=== PATIENT | female | born 1960 ===

== ENCOUNTER 2017-10-24 15:14 | Observation (INO) | payer SELFPAY ==
--- NOTE | 2017-10-24 16:00 | RAD ---
HISTORY: Chest pain COMPARISONS: None VIEWS: 1: frontal portable view of the chest at 3:45 PM FINDINGS: LINES AND TUBES: None. CARDIOMEDIASTINAL SILHOUETTE: The cardiomediastinal silhouette is normal for portable technique. PLEURA: The costophrenic angles are sharp. No pleural abnormalities are noted. LUNG PARENCHYMA: The lungs are clear. ABDOMEN: The upper abdomen is clear. There is no subphrenic gas. BONES AND SOFT TISSUES: No bone or soft tissue abnormalities are noted. IMPRESSION: NO ACTIVE CARDIOPULMONARY DISEASE.
[2017-10-24 16:21] LABS: ABS Basophils 0 10^3/ul (0-0.2); ABS Eosinophils 0.1 10^3/ul (0-0.6); ABS Lymphocytes 1.2 10^3/ul (1.0-4.8); ABS Monocytes 0.4 10^3/ul (0-0.8); ABS Neutrophils 3.9 10^3/ul (1.5-7.7); ABS Nucleated RBC 0 10^3/ul; Eosinophil % 2.5 % (0-6); Hematocrit 38 % (35-47); Lymphocyte % 20.6 % (25-47); Mean Corpuscular HGB Conc 35 g/dl (31-36); Mean Corpuscular Hemoglobin 29 pg (27-31); Mean Corpuscular Volume 84 fL (80-97); Mean Platelet Volume 8.8 um3 (7.4-10.4); Nucleated Red Blood Cells % 0; Platelet Count 207 10^3/ul (150-450); Red Blood Count 4.48 10^6/ul (4.0-5.4); Red Cell Distribution Width 13 % (10.5-15); White Blood Count 5.6 10^3/ul (3.5-10.8)
[2017-10-24 16:33] LABS: INR 0.91 (0.77-1.02)
[2017-10-24 16:34] LABS: EGFR Non-African American 89.8 (>60)
[2017-10-24] MEDS ORDERED: Dextrose 50% Syringe 50 ML* 25 GM/50 ML SYRINGE IV PUSH PRN (21:08)
[2017-10-24] MEDS ORDERED: Acetaminophen TAB* 325 MG PO PRN (21:08)
[2017-10-24] MEDS ORDERED: Aspirin 81 mg CHEW TAB* 81 MG TAB.CHEW PO ONE (21:08)
[2017-10-24] MEDS ORDERED: Ondansetron INJ* 2 MG/ML VIAL IV PRN (21:08)
[2017-10-24] MEDS ORDERED: Meclizine TAB* 12.5 MG PO PRN (21:24)
[2017-10-24] MEDS ORDERED: Meclizine TAB* 12.5 MG PO ONE (21:24)
--- NOTE | 2017-10-24 22:00 | RAD ---
HISTORY: Dizziness COMPARISONS: None TECHNIQUE: Multiple contiguous axial CT scans were obtained of the head without intravenous contrast. FINDINGS: HEMORRHAGE/INFARCT: There is no hemorrhage or acute infarct. MASSES/SHIFT: There is no mass or shift. EXTRA-AXIAL SPACES: There are no extra-axial fluid collections. SULCI AND VENTRICLES: The sulci and ventricles are normal in size and position for the patient's stated age. CEREBRUM: There are no focal parenchymal abnormalities. BRAINSTEM: There are no focal parenchymal abnormalities. CEREBELLUM: There are no focal parenchymal abnormalities. VESSELS: The vessels are grossly normal. PARANASAL SINUSES: The paranasal sinuses are clear. ORBITS: The orbits are unremarkable. BONES AND SOFT TISSUE: No bone or soft tissue abnormalities are noted. OTHER: None IMPRESSION: NO ACUTE INTRACRANIAL PATHOLOGY.
[2017-10-24] MEDS: Heparin VIAL(*) 5000 UNITS/ML VIAL (FIVE THOUSAND) SUBCUT SCH (23:33)
[2017-10-25 00:59] LABS: ABS Basophils 0 10^3/ul (0-0.2); ABS Eosinophils 0.2 10^3/ul (0-0.6); ABS Lymphocytes 1.7 10^3/ul (1.0-4.8); ABS Monocytes 0.4 10^3/ul (0-0.8); ABS Neutrophils 3.6 10^3/ul (1.5-7.7); ABS Nucleated RBC 0 10^3/ul; Eosinophil % 3.3 % (0-6); Hematocrit 38 % (35-47); Hemoglobin 12.9 g/dl (12.0-16.0); Lymphocyte % 28.7 % (25-47); Mean Corpuscular HGB Conc 34 g/dl (31-36); Mean Corpuscular Hemoglobin 29 pg (27-31); Mean Corpuscular Volume 85 fL (80-97); Mean Platelet Volume 8.7 um3 (7.4-10.4); Nucleated Red Blood Cells % 0.1; Platelet Count 204 10^3/ul (150-450); Red Blood Count 4.51 10^6/ul (4.0-5.4); Red Cell Distribution Width 13 % (10.5-15)
--- NOTE | 2017-10-25 02:48 | HP ---
HISTORY AND PHYSICAL: DATE OF ADMISSION: ATTENDING PHYSICIAN WHILE IN THE HOSPITAL: Betito Woods MD * (report dictated by Blue Harrison NP) PRIMARY CARE PROVIDER: None. CHIEF COMPLAINT: 1. Chest pain. 2. Dizziness. HISTORY OF PRESENT ILLNESS: Ms. Flowers is a 57-year-old female patient who speaks Uzbek only. The patient recently relocated from [facility] about 2 weeks ago. She has noticed that in the last 24 to 48 hours she had some episodes of dizziness that she describes as becoming worse when she sits up, feeling nauseated, no visual changes. There was no reports of weakness to 1 side, no facial drooping, and again no blurry vision and she also complained of having chest discomfort and the patient said that she has been having some intermittent chest burning, pressure going up the hills over the last several days intermittently. There is no chest pressure now, and when she gets these episodes, there is no reports of associated nausea, shortness of breath, or diaphoresis. The patient states that she was concerned today because she just fell off, she felt that dizziness. She had been having that chest pressure. She spoke to her friend. Because she has no primary care provider here, they came into the ER. The patient denies having any nausea or vomiting. No recent fevers, chills, or coughing. She denies any leg swelling, leg pain, or any fevers or chills, but there was concern because of these symptoms she had been exhibiting and we were asked to evaluate for admission. PAST MEDICAL HISTORY: According to the patient includes: 1. Hypertension. 2. Hyperlipidemia. 3. Kidney stones. 4. Diabetes. PAST SURGICAL HISTORY: 1. She has had spine surgery. 2. Appendectomy. HOME MEDICATIONS: She brought meds from [facility] and she says the only medication she is taking is insulin and she is not aware of the dose. ALLERGIES TO MEDICATIONS: Include no known drug allergies. FAMILY HISTORY: She said her father had an [place], she is unsure what age. Mother' s history was reviewed and noncontributory. SOCIAL HISTORY: She does not smoke and does not drink. Surrogate decision maker is her [id number]. REVIEW OF SYSTEMS: There is no documented fever. She denies having any significant weight change. There is no double vision. She denies having any ear discharge. There is no rhinorrhea. There has been no sore throat. No thyroid enlargement. She denies having any chest pain currently; she did have some primarily in the HPI that was exertional. There is no orthopnea, no nocturnal dyspnea. There was no abdominal pain. There was no nausea, no vomiting, no dysuria, no frequency, no seizure. There was no reports of loss of consciousness, no pruritus, and no skin ulcerations. Review of 14-systems completed, all others negative. PHYSICAL EXAMINATION GENERAL: At this time, Ms. Flowesr is a 57-year-old female patient. She is sitting in the ED stretcher. She does not appear to be in any acute distress. VITAL SIGNS: Blood pressure 117/65, pulse 85, respirations 20, O2 sat 96%, and temperature 99.1. HEENT: Head atraumatic and normocephalic. Eyes: EOMs are intact. Sclerae anicteric and not pale. NECK: Supple. Her oral mucosa appears to be moist. No oropharyngeal erythema. LUNGS: Clear to auscultation bilaterally. No wheezes, rales, or rhonchi. HEART: Sounds S1 and S2. Regular rate and rhythm. No murmurs, rubs, or gallops. ABDOMEN: Soft, flat, nontender. Bowel sounds were present. EXTREMITIES: Pulses were 2+ throughout. She is moving all 4 extremities with 5 /5 strength. NEUROLOGIC: The patient is awake, alert. She is oriented x3. Speech is clear. Tongue midline. No nystagmus, no gross focal deficits were noted. SKIN: Grossly intact. DIAGNOSTIC STUDIES/LAB DATA: Revealed a WBC of 5.6, RBC of 4.4, hemoglobin of 13.0, hematocrit of 38, platelet count of 207. INR was 0.91, PTT at 29.2, the D - dimer was less than 200. Sodium 136, potassium was 3.7, chloride of 102, bicarb 25, BUN 18, creatinine 0.68, glucose 203, lactic 1.4, calcium 9.3, mag 2.1. Total bili 1.1, AST 17, ALT 22, alk phos 62. CK 107, CK-MB 3.5, troponin 0.0, repeat troponin was 0.01. BNP at 28, albumin of 4, TSH normal. She did have a chest x-ray obtained today which revealed no active cardiopulmonary disease. She does have an EKG obtained today. No previous for comparison, but today it is showing a normal sinus rhythm, rate of 78. She had no ST elevations or T- wave inversions noted. ASSESSMENT AND PLAN: Ms. Flowers is a 57-year-old female patient coming into the ED today with complaints of chest discomfort and dizziness. We were asked to evaluate for admission. She will be admitted under observation status for: 1. Dizziness. Suspect the dizziness is probably vertigo. It is very positional, described as the room is spinning. She is feeling better now and the symptoms are gone. I am going to give her some meclizine, check a CT brain. Should the symptoms persist, I would consider getting an MRI and neurology input, but at this point I will check orthostatics, place her on telemetry as she appears to be stable. 2. Chest pain. Again, she has risk factors in the sense that she has hypertension, hyperlipidemia, and diabetes. I will go ahead and cycle her troponins. Order an EKG for her in the morning and in addition to this will also check a stress test in the morning and will continue to follow. 3. Diabetes. I have ordered lispro sliding scale. We will check an A1c. 4. Hypertension. Her blood pressure here is stable, we will follow. If need to, I would consider starting her on amlodipine or antihypertensive. 5. Hyperlipidemia. I will check lipid panel in the morning and consider statin. 6. DVT prophylaxis: I have ordered heparin subcu. She is moderate risk. 7. Social Issues: She has no insurance. She recently relocated from [facility]. She will need a PCP and outpatient followup. I have asked social work faculty member to see her and Social Work. 8. Code status: Full code. 9. Fluids, electrolytes, and nutrition: She can have a consistent carb diet and she will be n.p.o. after midnight. TIME SPENT: On admission 60 minutes, greater than half the time spent face-to- face with the patient obtaining my history and physical. The other half time was spent going over the plan of care with the patient, implementing the plan of care. I discussed the plan of care with my attending, Dr. Woods, he is in agreement. BLUE HARRISON, SEJAL [id number]/[facility] #: [id number] KAYLA
[2017-10-25 04:03] LABS: Urine Appearance Cloudy; Urine Blood Negative (Negative); Urine Color Yellow; Urine Ketones Negative (Negative); Urine Protein Negative (Negative); Urine Specific Gravity 1.012 (1.010-1.030); Urine Urobilinogen Negative (Negative)
[2017-10-25 06:06] LABS: ABS Basophils 0 10^3/ul (0-0.2); ABS Eosinophils 0.2 10^3/ul (0-0.6); ABS Lymphocytes 1.6 10^3/ul (1.0-4.8); ABS Monocytes 0.4 10^3/ul (0-0.8); ABS Neutrophils 3.4 10^3/ul (1.5-7.7); ABS Nucleated RBC 0 10^3/ul; Eosinophil % 3.3 % (0-6); Hematocrit 37 % (35-47); Hemoglobin 12.7 g/dl (12.0-16.0); Lymphocyte % 28.7 % (25-47); Mean Corpuscular HGB Conc 34 g/dl (31-36); Mean Corpuscular Hemoglobin 29 pg (27-31); Mean Corpuscular Volume 85 fL (80-97); Mean Platelet Volume 9.1 um3 (7.4-10.4); Nucleated Red Blood Cells % 0.1; Platelet Count 198 10^3/ul (150-450); Red Cell Distribution Width 13 % (10.5-15); White Blood Count 5.7 10^3/ul (3.5-10.8)
[2017-10-25 06:23] LABS: EGFR Non-African American 80.2 (>60)
[2017-10-25] MEDS: Heparin VIAL(*) 5000 UNITS/ML VIAL (FIVE THOUSAND) SUBCUT SCH ×2 (07:39→14:14)
[2017-10-25] MEDS: Insulin LISPRO* 1 UNITS UNIT SUBCUT SCH ×3 (08:00→17:00)
[2017-10-25] MEDS ORDERED: cefTRIAXone(*) 1 GM in NS 0.9% 50 ML* 50 ML IVPB SCH (08:00)
[2017-10-25] MEDS ORDERED: Aspirin 81 mg CHEW TAB* 81 MG TAB.CHEW PO SCH (09:00)
--- NOTE | 2017-10-25 14:25 | RAD ---
Edited for charges. INDICATION: Chest pain. COMPARISON: There are no prior studies available for comparison. Technique: A single day myocardial perfusion stress study was performed. Initially a resting study was performed. The patient was given an intravenous injection of 10.4 mCi of technetium 99m tetrofosmin and and the heart was imaged in multiple projections. The patient returned later in the day and under the direction of Dr. Espinal, the patient was exercised to a peak heart rate of 144 beats per minute which was 87% of the maximum predicted heart rate. Subsequently the patient was given intravenous injection of 25.3 mCi of technetium 99m tetrofosmin and the heart was imaged in multiple projections. Images were reconstructed in the axial, sagittal and coronal planes and in a 3- D format. FINDINGS: There is hypokinesis within the cardiac apex and septum. The left ventricular ejection fraction is calculated to be 54%. Review of the images demonstrates a moderate size defect present on both the post exercise and resting images centered in the cardiac apex with slight extension into the septum. The defect is slightly smaller on the resting images consistent with mild endy- infarct ischemia. IMPRESSION: 1. FINDINGS MOST CONSISTENT WITH A MODERATE-SIZED INFARCT PRESENT IN THE CARDIAC APEX WITH SLIGHT EXTENSION INTO THE SEPTUM WITH MILD ENDY-INFARCT ISCHEMIA. 2. LEFT VENTRICULAR EJECTION FRACTION 54%. ASSESSMENT: Low risk. Based on imaging criteria from ACC/AHA 2002 Guideline Update for the Management of Patients With Chronic Stable Angina Table 23. Noninvasive Risk Stratification. MTDD
[2017-10-25 15:53] VITALS: BP 112/64
--- NOTE | 2017-10-26 01:10 | CONS ---
CC: Dr. Christian * CONSULTATION REPORT: DATE OF CONSULT: 10/25/17. PRIMARY PHYSICIAN: None. POST PRODUCTION ASSISTANT: Dr. Christian. HISTORY OF PRESENT ILLNESS: A 57-year-old [place] woman recently arrived in the [place] admitted with dizziness and angina. Cardiology was consulted because of an abnormal stress test. History was obtained in part from the H and P, and in part through translation through a family member. She describes fairly typical angina, functional class 1 to 2 on no medical therapy for at least [address] [facility]. She would get precordial discomfort with walking up the hill or flight of stairs, sometimes would have accompanying dyspnea. As far as I can tell, the pattern has been stable. She was admitted because she felt dizzy and lightheaded, was thought to have vertigo. As part of her evaluation here troponin is negative x2, EKG was unremarkable x2 and she had an exercise stress test today on no ant-anginal Rx which showed a mostly fixed apical defect ("low risk") with mild chest discomfort at peak exercise. She had early achievements of target heart rate, has not received any beta blockade. Preadmission, she was only on insulin. PAST MEDICAL HISTORY: 1. Hypertension. 2. Hyperlipidemia. 3. Diabetes type 2. PREHOSPITAL MEDICATIONS: Apparently only insulin. ALLERGIES: None to medications. FAMILY HISTORY: There is apparently coronary disease. SOCIAL HISTORY: She is a nonsmoker. REVIEW OF SYSTEMS: Non-obtainable. PHYSICAL EXAM: She is pain free, comfortable, somewhat overweight, BP 112/64, heart rate is in the 80s, sinus rhythm. Her lungs are clear. JVP is normal as are carotids, she has no bruits. HEENT: Normal without xanthelasma. Cardiac Exam: Normal S1, S2. No gallop, murmur or rub. Abdomen: Benign without bruits. Radial, femoral and pedal pulses are palpable. She has no cyanosis, clubbing or edema. DIAGNOSTIC STUDIES/LAB DATA: EKG shows only low voltage and poor R-wave progression on the first tracing with improvement on the second tracing. Cholesterol 202, triglycerides 222, LDL 118, HDL 39.6 on no statin. Her blood sugar is 265. A1c is 9.1. CBC and BMP are normal. Chest x-ray by my review is normal. IMPRESSION: Angina, functional class 1 to 2, on no medical therapy with stable pattern for 3 years, low risk stress imaging. We viewed med Rx, I conveyed to her that she should be on baby aspirin daily, the plan is to start her on medical therapy with beta blockade as well as a statin and p.r.n. nitroglycerin. We will arrange follow up in cardiology clinic. Thanks for the consultation. [id number]/[facility] #: [id number] KAYLA
--- NOTE | 2017-10-27 09:46 | ED ---
Mireya Cameron Rebecca, scribed for Lc Celaya MD on 10/24/17 at 1605 . 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 Pain is located on the left side of the chest and is characterized as heaviness. Given ASA and NTG by EMS en route which improved symptoms. Additionally c/o dizziness, fatigue and nausea this morning. Prior similar episodes with a negative cardiac workup. PMHx DM, HTN, HLD. Accompanied by her [id number] and used a Citizen [place] account manager employee benefits to obtain history from pt. - History of Current Complaint Time Seen by Provider: 10/24/17 15:20 Hx Obtained From: Patient - Cat Hooker Onset/Duration: Lasting Hours, Still Present Dyspnea At: Rest Aggrevating Factors: Nothing Alleviating Factors: EMS Tx Associated Signs & Symptoms: Chest Pain Unrelated to Cough, Dizzy - Allergy/Home Medications Home Medications: Home Medications NK [No Home Medications Reported] 10/24/17 [History Confirmed 10/24/17] PMH/Surg Hx/FS Hx/Imm Hx Endocrine/Hematology History: Reports: Hx Diabetes Cardiovascular History: Reports: Hx Hypercholesterolemia, Hx Hypertension - Family History Known Family History: Positive: Unknown - Unable to obtain - Social History Alcohol Use: Rare Substance Use Type: Reports: None Smoking Status (MU): Never Smoked Tobacco Review of Systems Positive: Fatigue Positive: Chest Pain Positive: Shortness Of Breath Positive: Nausea Neurological: Other - Dizziness All Other Systems Reviewed And Are Negative: Yes Physical Exam - Summary Physical Exam Summary: VITAL SIGNS: Reviewed. GENERAL: Patient is a well-developed and nourished female who is lying comfortable in the stretcher. Patient is not in any acute respiratory distress. HEAD AND FACE: No signs of trauma. No ecchymosis, hematomas or skull depressions. No sinus tenderness. EYES: PERRLA, EOMI x 2, No injected conjunctiva, no nystagmus. EARS: Hearing grossly intact. Ear canals and tympanic membranes are within normal limits. MOUTH: Oropharynx within normal limits. NECK: Supple, trachea is midline, no adenopathy, no JVD, no carotid bruit, no c- spine tenderness, neck with full ROM. CHEST: Symmetric, no tenderness at palpation LUNGS: Clear to auscultation bilaterally. No wheezing or crackles. CVS: Regular rate and rhythm, S1 and S2 present, no murmurs or gallops appreciated. ABDOMEN: Soft, non-tender. No signs of distention. No rebound no guarding, and no masses palpated. Bowel sounds are normal. EXTREMITIES: FROM in all major joints, no edema, no cyanosis or clubbing. NEURO: Alert and oriented x 3. No acute neurological deficits. Speech is normal and follows commands. SKIN: Dry and warm Triage Information Reviewed: Yes Vital Signs On Initial Exam: Initial Vitals Temp Pulse Resp BP Pulse Ox 99.1 F 84 18 112/67 95 10/24/17 16:17 10/24/17 16:17 10/24/17 16:17 10/24/17 16:17 10/24/17 16:17 Vital Signs Reviewed: Yes Diagnostics - Vital Signs Vital Signs Temp Pulse Resp BP Pulse Ox 10/24/17 16:17 99.1 F 84 18 112/67 95 - Laboratory Lab Results: Lab Results 10/24/17 10/24/17 10/24/17 Range/Units 16:01 16:01 16:01 WBC 5.6 (3.5-10.8) 10^3/ul RBC 4.48 (4.0-5.4) 10^6/ul Hgb 13.0 (12.0-16.0) g/dl Hct 38 (35-47) % MCV 84 (80-97) fL MCH 29 (27-31) pg MCHC 35 (31-36) g/dl RDW 13 (10.5-15) % Plt Count 207 (150-450) 10^3/ul MPV 8.8 (7.4-10.4) um3 Neut % (Auto) 69.4 (38-83) % Lymph % (Auto) 20.6 L (25-47) % [place] % (Auto) 7.2 H (0-7) % Eos % (Auto) 2.5 (0-6) % Baso % (Auto) 0.3 (0-2) % Absolute Neuts (auto) 3.9 (1.5-7.7) 10^3/ul Absolute Lymphs (auto) 1.2 (1.0-4.8) 10^3/ul Absolute Monos (auto) 0.4 (0-0.8) 10^3/ul Absolute Eos (auto) 0.1 (0-0.6) 10^3/ul Absolute Basos (auto) 0 (0-0.2) 10^3/ul Absolute Nucleated RBC 0 10^3/ul Nucleated RBC % 0 INR (Anticoag Therapy) 0.91 (0.77-1.02) APTT 29.2 (26.0-36.3) seconds D-Dimer, Quantitative < 200 (Less Than 230) ng/mL Sodium 136 L (139-145) mmol/L Potassium 3.7 (3.5-5.0) mmol/L Chloride 102 (101-111) mmol/L Carbon Dioxide 25 (22-32) mmol/L Anion Gap 9 (2-11) mmol/L BUN 18 (6-24) mg/dL Creatinine 0.68 (0.51-0.95) mg/dL Est GFR ( Amer) 115.5 (>60) Est GFR (Non-Af Amer) 89.8 (>60) BUN/Creatinine Ratio 26.5 H (8-20) Glucose 203 H (70-100) mg/dL Lactic Acid (0.5-2.0) mmol/L Calcium 9.3 (8.6-10.3) mg/dL Magnesium 2.1 (1.9-2.7) mg/dL Total Bilirubin 1.10 H (0.2-1.0) mg/dL AST 17 (13-39) U/L ALT 22 (7-52) U/L Alkaline Phosphatase 62 (34-104) U/L Total Creatine Kinase 107 (10-223) U/L CK-MB (CK-2) 3.5 (0.6-6.3) ng/mL Troponin I 0.00 (<0.04) ng/mL B-Natriuretic Peptide ( - 100) pg/mL Total Protein 7.0 (6.4-8.9) g/dL Albumin 4.0 (3.2-5.2) g/dL Globulin 3.0 (2-4) g/dL Albumin/Globulin Ratio 1.3 (1-3) TSH 0.88 (0.34-5.60) mcIU/mL 10/24/17 10/24/17 Range/Units 16:01 16:01 WBC (3.5-10.8) 10^3/ul RBC (4.0-5.4) 10^6/ul Hgb (12.0-16.0) g/dl Hct (35-47) % MCV (80-97) fL MCH (27-31) pg MCHC (31-36) g/dl RDW (10.5-15) % Plt Count (150-450) 10^3/ul MPV (7.4-10.4) um3 Neut % (Auto) (38-83) % Lymph % (Auto) (25-47) % [place] % (Auto) (0-7) % Eos % (Auto) (0-6) % Baso % (Auto) (0-2) % Absolute Neuts (auto) (1.5-7.7) 10^3/ul Absolute Lymphs (auto) (1.0-4.8) 10^3/ul Absolute Monos (auto) (0-0.8) 10^3/ul Absolute Eos (auto) (0-0.6) 10^3/ul Absolute Basos (auto) (0-0.2) 10^3/ul Absolute Nucleated RBC 10^3/ul Nucleated RBC % INR (Anticoag Therapy) (0.77-1.02) APTT (26.0-36.3) seconds D-Dimer, Quantitative (Less Than 230) ng/mL Sodium (139-145) mmol/L Potassium (3.5-5.0) mmol/L Chloride (101-111) mmol/L Carbon Dioxide (22-32) mmol/L Anion Gap (2-11) mmol/L BUN (6-24) mg/dL Creatinine (0.51-0.95) mg/dL Est GFR ( Amer) (>60) Est GFR (Non-Af Amer) (>60) BUN/Creatinine Ratio (8-20) Glucose (70-100) mg/dL Lactic Acid 1.4 (0.5-2.0) mmol/L Calcium (8.6-10.3) mg/dL Magnesium (1.9-2.7) mg/dL Total Bilirubin (0.2-1.0) mg/dL AST (13-39) U/L ALT (7-52) U/L Alkaline Phosphatase (34-104) U/L Total Creatine Kinase (10-223) U/L CK-MB (CK-2) (0.6-6.3) ng/mL Troponin I (<0.04) ng/mL B-Natriuretic Peptide 28 ( - 100) pg/mL Total Protein (6.4-8.9) g/dL Albumin (3.2-5.2) g/dL Globulin (2-4) g/dL Albumin/Globulin Ratio (1-3) TSH (0.34-5.60) mcIU/mL Result Diagrams: 10/24/17 16:01 10/24/17 16:01 Lab Statement: Any lab studies that have been ordered have been reviewed, and results considered in the medical decision making process. - Radiology CXR Xray Interpretation: No Acute Changes - NO ACTIVE CARDIOPULMONARY DISEASE. ED physician reviewed this report. Radiology Interpretation Completed By: Radiologist - EKG 1531 Cardiac Rate: NL - 78 bpm EKG Rhythm: Sinus Rhythm EKG Interpretation: No ST elevations Re-Evaluation - Re-Evaluation First Eval Re-Evaluation Time: 18:50 Comment: Discussed results and admission plan. Pt reports that she does not want to stay as an admission, as she does not have insurance. It is highly recommended that she stays and if she chooses not to, she must sign out AMA. Second Eval Re-Evaluation Time: 19:11 Comment: Pt agrees to admission. Course/Dx - Course Assessment/Plan: This patient is a 57-year-old female who presents to the emergency room with a chief complaint of shortness of breath. She reports that she also has chest pain which is sharp with no radiation. At the emergency room the patient is asymptomatic. Blood test results without any significant abnormality except for glucose of 203. The d-dimer is less than 200. Chest x- ray impression no active acute pulmonary disease. Because of the presentation of this chest pain and her comorbidities I believe that the patient should be admitted to rule out acute coronary syndrome. I discuss my physical exam, findings and test results with Dr. Neves from the hospitalist services and he agrees to admit patient to his services. Patient is hemodynamically stable alert and oriented x 3. - Diagnoses Differential Diagnosis/HQI/PQRI: Positive: CHF, COPD Exacerbation, NC Provider Diagnoses: Chest pain, rule out acute myocardial infarction - Physician Notifications Discussed Care of Patient With: Tari Neves Time Discussed With Above Provider: 18:46 Instructed by Provider To: Other - Accepts pt for admission. Discharge - Sign-Out/Discharge Documenting (check all that apply): Discharge/Admit/Transfer - Admit - Discharge Plan Condition: Stable Disposition: ADMITTED TO [facility] Referrals: No Primary Care Phys,NOPCP [Primary Care Provider] - The documentation as recorded by the Mireya garza Rebecca accurately reflects the service I personally performed and the decisions made by Yomi hines Walter, MD.
--- NOTE | 2017-10-27 23:43 | DS ---
CC: Dr. Ugo Fuentes; Dr. Andrea Christian; [facility] * DISCHARGE SUMMARY: DATE OF ADMISSION: 10/24/17 DATE OF DISCHARGE: 10/25/17 PRIMARY CARE PROVIDER: Dr. Ugo Fuentes. MY ATTENDING WHILE IN THE HOSPITAL: Dr. Tari Ho.* (DICTATED BY ZOHRA BRYANT) CONSULTING OUTPATIENT RECEIVING MANAGER: Dr. Andrea Christian. PRIMARY DISCHARGE DIAGNOSES: 1. Chest pain. 2. Chronic stable angina. 3. Previously undiagnosed myocardial infarction. 4. Uncontrolled diabetes mellitus. 5. Urinary tract infection, which grew mitchell sensitive Escherichia coli. SECONDARY DISCHARGE DIAGNOSES: 1. Hypertension. 2. Hyperlipidemia. 3. Kidney stones. STUDIES DONE WHILE IN THE HOSPITAL: Chest x-ray from 10/24/17 read as no active cardiopulmonary disease. Electrocardiogram from 10/24/17 shows normal sinus rhythm, left axis deviation, rate of 78, QTc of 419, poor R-wave progression across the precordium. No other ST- segment abnormalities. No blocks or hypertrophy. No other abnormalities. Repeat EKG from 10/25/17 shows rate of 72, improved progression of R wave across the precordium. Possible left atrial enlargement seen on previous EKG. No other significant abnormalities. Brain CT from 10/24/17 read as no acute intracranial pathology. Nuclear medicine scan from 10/25/17 read as findings most consistent with moderate size infarct present in the cardiac apex with slight extension into the septum with mild feliberto-infarct ischemia, left ventricular ejection fraction 54%. Assessment: Low risk. MEDICATIONS AT DISCHARGE: 1. Tylenol 650 mg p.o. q.4 hours as needed for pain. 2. Aspirin 81 mg p.o. daily. 3. Atorvastatin 40 mg p.o. daily. 4. Metoprolol succinate 20 mg p.o. at bedtime. 5. Nitroglycerin 0.4 mg sublingual q.5 minutes as needed for chest pain. 6. Cefuroxime 250 mg p.o. b.i.d. x12. 7. Lantus insulin 10 units subcutaneous b.i.d. HOSPITAL COURSE: This is a brief summary of the patient's presentation. For more details, please see the history and physical from Blue Bee NP, from 10/24/17. In brief, the patient is a 57-year-old female with past medical history significant for the above, who relocated from [facility] about 2 weeks ago and speaks no Paraguayan. For 24 to 48 hours before presentation, the patient described episodes of dizziness, which were somewhat positional. No other neurological deficits. The patient also had intermittent chest discomfort, worse with activity, particularly walking up hills with no reported symptoms. The chest pain and the dizziness were often related. The patient had no recent illnesses or other concerns. In discussing with the patient's son, Devin, it appears the patient had been taking insulin Lantus 10 units twice daily and never checking her blood sugars. They denied any episodes of hypoglycemia. The patient was admitted to the hospital for a chest pain rule out. The patient had no recurrent chest pain while in the hospital. The patient's hemoglobin A1c was found to be 9.1 and the patient had an LDL cholesterol of 118 , HDL cholesterol of 39.3, total cholesterol 202, triglycerides 222. The patient's [id number] glucoses were elevated while in the hospital at 255, 139 , 172. The patient had a UA positive for nitrite and leukocyte esterase. The patient had no other significant laboratory abnormalities from her admission except for troponin I that was negative x4. The patient had no acute events overnight from 10/24/17 to 10/25/17. The patient had a stress test as above, which came back showing signs of previous infarction. The patient was seen in consultation by Dr. Jace Espinal of Cardiology, who believed this to be angina , functional class I or II, with a stable pattern and low-risk stress imaging and opted for medical therapy consisting of a baby aspirin, statin therapy, beta blockade, and nitroglycerin therapy as above. The patient is to follow up with Dr. Andrea Christian within 1 to 2 weeks. The patient's diabetic control was discussed with her and her son and it was conveyed that it was suboptimal and they were encouraged to take her blood sugar 3 times daily with meals. Continue on her basal insulin dosing and follow up closely with her primary care provider with these results for further adjustment of her insulin dosing likely with a basal bolus insulin pattern. It was discussed this is important for her ongoing heart health. The patient and family stated that they understood and were anxious for discharge. The patient was stable and able to discharge on 10/25/17. PHYSICAL EXAMINATION ON DAY OF DISCHARGE: General: The patient is a 57-year- old female, who appears her stated age and is sitting comfortably in bed, in no acute distress. Vital signs at the time of discharge: Temperature 97.7, pulse rate 84, respiratory rate 16, oxygen saturation 98% on room air, blood pressure 112/64. HEENT: Head normocephalic, atraumatic. Sclerae anicteric. No conjunctival injection. Nasal mucosa moist. Oral mucosa moist. No pharyngeal erythema, discharge, or exudate. Neck: Supple, nontender. No lymphadenopathy. No JVD. No carotid bruit auscultated. Cardiac: Regular rate and rhythm. No clicks, murmurs, gallops, or rubs. Pulses are 2+ bilaterally in dorsalis pedis, posterior tibial, and radial areas. No lower extremity edema. No calf tenderness noted. Respiratory: Clear to auscultation bilaterally. No wheezes, rales, or rhonchi. Good air exchange bilaterally. Abdomen: Soft, nontender, nondistended. Bowel sounds present. Normoactive in all 4 quadrants. No hepatosplenomegaly. No abdominal bruits auscultated. Genitourinary: No suprapubic or CVA tenderness. Skin: Clean, dry, intact. No rash. Neuro: Cranial nerves II through XII intact. No nystagmus. No focal deficits. Normal gait. Psychiatric: Pleasant and cooperative. LABORATORY DATA: On the day of discharge, white blood cell count 5.7, hemoglobin 12.7, hematocrit 37, platelet count 198. Sodium 138, potassium 4.1, chloride 103, carbon dioxide 27, anion gap 8, BUN 21, creatinine 0.75, glucose 265. Hemoglobin A1c 9.1. Calcium 9.5. Triglycerides 222, cholesterol 202, LDL cholesterol 118, HDL cholesterol 39.3. DISCHARGE PLAN: The patient will be discharged to home. The patient has significant support from her family members including her , friends, and extended family. The patient was instructed on taking her medications and they were sent to [facility]. Discussed with the family on the smith of the medications given the patient's lack of insurance and they stated that it will be no issue. The patient will continue on her basal insulin. The patient should have referral to the [facility] for diabetes education. The patient should also follow up with the [facility] with the blood glucose readings for the several days after she was discharged to home and before she goes to the [facility] for a better gauge of the pattern of her diabetic control. The patient should take medications as prescribed. The patient should have nitroglycerin as above and should take it in the event of angina and return to the emergency department for angina that does not respond to nitroglycerin. The patient should avoid activities that provoke her angina, but should engage in moderate-intensity exercise for weight loss. The patient should follow up with Dr. Andrea Christian in 1 to 2 weeks for cardiac care. The patient will establish with Dr. Ugo Fuentes as her primary care provider and has an appointment with him in early November. The patient should follow up with the [facility] for the next 30 days as needed for general medical management. The patient should take 6 more days of Ceftin for her urinary tract infection as prescribed. The patient should have a heart-healthy diet and avoid caffeine. The patient should engage in activity as tolerated with the above stipulations. TIME SPENT: Approximately 60 minutes was spent on this discharge, 30 of which was spent [id number] with the patient and her family discussing the treatment plan and obtaining history and physical. ZOHRA BRYANT [id number]/[facility] #: [id number] KAYLA
== END 2017-10-25 17:30 | disposition home or self-care (01) ==
LOC: ED 15:14 → MEDTELE 21:40
PROVIDERS: ADMIT Internal Medicine; ATTEND Internal Medicine
DX: R07.9 Chest pain, unspecified (principal); I20.9 Angina pectoris, unspecified; E11.8 Type 2 diabetes mellitus with unspecified complications; N39.0 Urinary tract infection, site not specified; B96.20 Unspecified Escherichia coli [E. coli] as the cause of diseases classified elsewhere; R42 Dizziness and giddiness; I10 Essential (primary) hypertension; E78.5 Hyperlipidemia, unspecified; Z87.442 Personal history of urinary calculi; Z79.899 Other long term (current) drug therapy; Z79.82 Long term (current) use of aspirin; I25.2 Old myocardial infarction; Z82.49 Family history of ischemic heart disease and other diseases of the circulatory system; Z79.4 Long term (current) use of insulin; R06.02 Shortness of breath
CPT/HCPCS: 36415; 70450; 71045; 78452; 80048; 80053; 80061; 81003; 81015; 82550; 82553; 83036; 83605; 83735; 83880; 84443; 84484; 85025; 85379; 85610; 85730; 87077; 87086; 87186; 93005; 93017; 96365; 96372; 99283; A9270-GY; A9502; G0378; J0696; J1644

== ENCOUNTER 2018-05-16 15:45 | Emergency (ER) | payer OTHER ==
[2018-05-16] MEDS ORDERED: Aspirin 81 mg CHEW TAB* 81 MG TAB.CHEW PO ONE (16:28)
--- NOTE | 2018-05-16 16:42 | ED ---
HPI Chest Pain - HPI Summary HPI Summary: A 58 y/o female brought in by ambulance accompanied by a site interpreter presents to the ED c/o SOB. In the ED room, the patient has a pulse of 72 BPM, O2 saturation of 96%, and blood pressure of 146/79. As per triage, "0900 took ibuprophen, at 1300 took another, patient was having weakness throughout the day. Denies CP/P, N/v, jaw pain". According to the patient via site interpreter, she has no pain in her chest, but has SOB and has been feeling terrible. She denies any nausea, vomiting, or dizziness. Patient has a history of heart problems. Patient came to the hospital previously for a stress test. Denies any smoking or ETOH. Patient speaks Cameroonian/Swedish. - History of Current Complaint Chief Complaint: EDChestPainROMI Time Seen by Provider: 05/16/18 16:04 Hx Obtained From: Kidney Puller Onset/Duration: Started Hours Ago, Still Present Timing: Constant Current Severity: None Pain Intensity: 0 Pain Scale Used: 0-10 Numeric Chest Pain Location: Mid Sternal Chest Pain Radiates: No Aggravating Factor(s): Nothing Alleviating Factor(s): Nothing Associated Signs and Symptoms: Positive: Chest Pain - Allergy/Home Medications Allergies/Adverse Reactions: Allergies Allergy/AdvReac Type Severity Reaction Status Date / Time No Known Allergies Allergy Verified 10/24/17 22:41 Home Medications: Home Medications Insulin Glargine,Hum.rec.anlog [Basaglar Kwikpen U-100] 20 units SUBCUT DAILY [History Confirmed 05/16/18] Insulin Lispro [Admelog] 1 unit SUBCUT SEE INSTRUCTIONS 05/16/18 [History Confirmed 05/16/18] Metformin HCl 500 mg PO BID 05/16/18 [History Confirmed 05/16/18] Metoprolol Succinate XL TAB* [Toprol XL TAB*] 50 mg PO BID 05/16/18 [History Confirmed 05/16/18] PMH/Surg Hx/FS Hx/Imm Hx Endocrine/Hematology History: Reports: Hx Diabetes Cardiovascular History: Reports: Hx Angina, Hx Hypercholesterolemia, Hx Hypertension Sensory History: Denies: Hx Contacts or Glasses, Hx Hearing Aid Opthamlomology History: Denies: Hx Contacts or Glasses - Surgical History Surgery Procedure, Year, and Place: SPINE SURGERY Infectious Disease History: No Infectious Disease History: Denies: Traveled Outside the [place] in Last 30 Days - Family History Known Family History: Positive: Other - [place] FOR MOTHER AND SISTER - Social History Alcohol Use: Rare Substance Use Type: Reports: None Smoking Status (MU): Never Smoked Tobacco Review of Systems Negative: Fever Negative: Chest Pain Positive: Shortness Of Breath Negative: Vomiting, Nausea Neurological: Other - NEGATIVE: Dizziness All Other Systems Reviewed And Are Negative: Yes Physical Exam - Summary Physical Exam Summary: Appearance: Well appearing, no pain distress. Normal exam. Skin: warm, dry, reflects adequate perfusion Head/face: normal Eyes: EOMI, FLEX ENT: normal Neck: supple, non-tender Respiratory: CTA, breath sounds present Cardiovascular: RRR, pulses symmetrical Abdomen: non-tender, soft Musculoskeletal: normal, strength/ROM intact Neuro: normal, sensory motor intact, A&Ox3 Triage Information Reviewed: Yes Vital Signs On Initial Exam: Initial Vitals Temp Pulse Resp BP Pulse Ox 98.4 F 74 16 152/91 96 05/16/18 15:48 05/16/18 15:48 05/16/18 15:48 05/16/18 15:48 05/16/18 15:48 Vital Signs Reviewed: Yes Diagnostics - Vital Signs Vital Signs Temp Pulse Resp BP Pulse Ox 05/16/18 16:26 71 16 127/77 97 05/16/18 16:00 71 14 92 05/16/18 15:56 19 146/79 05/16/18 15:54 76 11 96 05/16/18 15:48 98.4 F 74 16 152/91 96 - Laboratory Result Diagrams: 05/16/18 16:33 05/16/18 16:33 Lab Statement: Any lab studies that have been ordered have been reviewed, and results considered in the medical decision making process. - Radiology CXR Radiology Interpretation Completed By: Radiologist Summary of Radiographic Findings: No radiographic evidence for acute cardiopulmonary abnormality on this. portable chest x-ray. ED PHYSICIAN REVIEWED THIS RADIOLOGY REPORT. - EKG 1639 Cardiac Rate: NL - 69 BPM EKG Rhythm: Sinus Rhythm - 69 BPM Summary of EKG Findings: QS in inferior lead. Chest Pain Course/Dx - Course Course Of Treatment: A 58 y/o female brought in by ambulance accompanied by a site interpreter presents to the ED c/o SOB. In the ED room, the patient has a pulse of 72 BPM, O2 saturation of 96%, and blood pressure of 146/79. As per triage, "0900 took ibuprophen, at 1300 took another, patient was having weakness throughout the day. Denies CP/P, N/v, jaw pain". According to the patient via site interpreter, she has no pain in her chest, but has SOB and has been feeling terrible. She denies any nausea, vomiting, or dizziness. Patient has a history of heart problems. Patient came to the hospital previously for a stress test. Denies any smoking or ETOH. Patient speaks Cameroonian/Swedish. Physical exam was unremarkable. A CXR revealed no radiographic evidence for acute cardiopulmonary abnormality on this portable chest x-ray. An EKG revealed NSR of 69 BPM, QS in the inferior lead. Hematology and Chemistry screens were done. No significant laboratory abnormalities were found. In the ED course, the patient received Aspirin. Patient will be discharged with a diagnosis of SOB. Patient is to follow up with primary care provider in 2-3 days. Patient is to return to ED for any new or worsening symptoms. Patient is agreeable with this plan. - Diagnoses Provider Diagnoses: SOB (shortness of breath) Discharge - Sign-Out/Discharge Documenting (check all that apply): Patient Departure - DISCHARGE - Discharge Plan Condition: Stable Disposition: HOME Patient Education Materials: Shortness of Breath (ED) Referrals: Radha Tomas MD [Primary Care Provider] - 3 Days Additional Instructions: FOLLOW UP WITH PRIMARY CARE PROVIDER IN 2-3 DAYS. RETURN TO ED FOR ANY NEW OR WORSENING SYMPTOMS. - Attestation Statements Document Initiated by Shellibe: Yes Documenting Scribe: Kris Valerio Provider For Whom Mahesh is Documenting (Include Credential): Colby Hull MD Scribe Attestation: Kris Cameron, scribed for Colby Hull MD on 05/16/18 at 1956. Status of Scribe Document: Ready
[2018-05-16 16:46] LABS: ABS Basophils 0 10^3/ul (0-0.2); ABS Eosinophils 0.2 10^3/ul (0-0.6); ABS Lymphocytes 1.8 10^3/ul (1.0-4.8); ABS Monocytes 0.4 10^3/ul (0-0.8); ABS Neutrophils 3.4 10^3/ul (1.5-7.7); ABS Nucleated RBC 0 10^3/ul; Eosinophil % 3.7 %; Hematocrit 34 % (35-47); Hemoglobin 11.6 g/dl (12.0-16.0); Lymphocyte % 30.2 %; Mean Corpuscular HGB Conc 34 g/dl (31-36); Mean Corpuscular Hemoglobin 28 pg (27-31); Mean Corpuscular Volume 84 fL (80-97); Nucleated Red Blood Cells % 0; Platelet Count 191 10^3/ul (150-450); Red Blood Count 4.09 10^6/ul (4.00-5.40); Red Cell Distribution Width 13 % (10.5-15); White Blood Count 5.9 10^3/ul (3.5-10.8)
[2018-05-16 16:57] LABS: Activated Partial Thrombo Time 30.6 seconds (26.0-36.3); INR 0.9 (0.77-1.02)
[2018-05-16 17:07] LABS: Albumin 4.1 g/dL (3.2-5.2); Albumin/Globulin Ratio 1.6 (1-3); BUN/Creatinine Ratio 34.6 (8-20); Calcium 9.5 mg/dL (8.6-10.3); EGFR Non-African American 76.4 (>60); Globulin 2.6 g/dL (2-4); Total Bilirubin 0.7 mg/dL (0.2-1.0); Total Protein 6.7 g/dL (6.4-8.9)
[2018-05-16 20:23] VITALS: BP 138/71
== END 2018-05-16 20:22 | disposition home or self-care (01) ==
LOC: ED 15:45
DX: R06.02 Shortness of breath (principal); E11.8 Type 2 diabetes mellitus with unspecified complications; E78.00 Pure hypercholesterolemia, unspecified; I10 Essential (primary) hypertension; Z79.4 Long term (current) use of insulin; Z79.84 Long term (current) use of oral hypoglycemic drugs
CPT/HCPCS: 36415; 71045; 80053; 84484; 85025; 85610; 85730; 93005; 99283; A9270-GY

== ENCOUNTER 2018-10-22 07:06 | Day surgery (SDC) | payer OTHER ==
[~2018-10-22 07:06] MED LIST: Acetaminophen TAB* 325 MG PO PRN; Buffered Lidocaine 1% SYRIN* 1 ML/SYRINGE INTRADERM ONE
[2018-10-22] MEDS ORDERED: Midazolam* 1 MG/ML 5 ML VIAL (5 MG) ONE (07:38)
[2018-10-22] MEDS ORDERED: fentaNYL* 50 MCG/ML 2 ML VIAL (100 MCG VIAL) ONE (07:38)
--- NOTE | 2018-10-22 10:22 | OP ---
DATE OF OPERATION: 10/22/18 [facility] DATE OF : 64 SURGEON: Dr. Orlando Webster. SUPERVISOR DUMPING: None. ANESTHESIA: Topical with intravenous sedation. PRE-OP DIAGNOSIS: Cataract, left eye. POST-OP DIAGNOSIS: Cataract, left eye. OPERATIVE PROCEDURE: Phacoemulsification and cataract extraction with posterior chamber intraocular lens implant, left eye. COMPLICATIONS: None. BLOOD LOSS: None. OPERATIVE FINDINGS: The patient was brought to the operating room and received a small amount of intravenous sedation. A drop of Tetracaine was placed in her left eye. She was prepped and draped in the usual sterile fashion for ophthalmic surgery and attention was directed to the left eye where a speculum was placed. A paracentesis was created at the 5 o'clock position and 0.1 cc of 1 percent preservative-free Lidocaine was injected into the anterior chamber followed by DisCoVisc. The eye was digitally stabilized while a 2.75 mm keratome was used to create a triplanar clear corneal incision at the 3 o'clock position. A continuous curvilinear capsulorrhexis was created with a cystotome and Utrata forceps. BSS on a cannula was used to hydrodissect the lens from the capsule. Phacoemulsification was performed in a [id number] technique to create four fragments which were removed. Residual cortical material was removed with irrigation and aspiration. DisCoVisc was used to inflate the capsular bag and an AU00T0 24.5 diopter lens was folded and inserted into the capsular bag. DisCoVisc was removed using irrigation and aspiration. BSS on a cannula was used to hydrate the corneal stroma and seal the wound. At the end of the case the pupil was round and the lens was centered. The eye was of normal pressure and the wound was water tight. The speculum was removed and topical Maxitrol ointment was placed on the surface of the eye. The eye was closed, patched and shielded and the patient was sent to the recovery room in stable condition with post operative instructions and follow-up appointment given. [id number]/[facility] #: [id number] KAYLA
[2018-10-22] MEDS ORDERED: Ketorolac 0.5% OPHTH (NF) 0.5 % 5 ML BTL ONE (12:59)
[2018-10-22] MEDS ORDERED: Tetracaine 0.5% OPTH.SOL 4 ML* 1 DROP BTL ONE (12:59)
[2018-10-22] MEDS ORDERED: Cyclopentolate 1% OPTH.SOL* 2 ML BTL ONE (12:59)
[2018-10-22] MEDS ORDERED: Lidocaine 1%* 5 ML VIAL ONE (12:59)
[2018-10-22] MEDS ORDERED: Phenylephrine OPHTH SOL 2.5%* 2 ML ONE (12:59)
[2018-10-22] MEDS ORDERED: Tropicamide 1% OPTH.SOL* BTL ONE (12:59)
[2018-10-22] MEDS ORDERED: Neomycin/Polymy/Dex OPHTH.OIN* 3.5 GM ONE (12:59)
[2018-10-28] MEDS ORDERED: Buffered Lidocaine 1% SYRIN* 1 ML/SYRINGE INTRADERM ONE (09:58)
[2018-10-29] MEDS ORDERED: Acetaminophen TAB* 325 MG PO PRN (05:00)
[2018-10-29 13:34] VITALS: BP 128/72
== END 2018-10-22 09:05 | disposition home or self-care (01) ==
LOC: OREAST 07:06
PROVIDERS: ATTEND Ophthalmology
DX: H25.12 Age-related nuclear cataract, left eye (principal); E11.9 Type 2 diabetes mellitus without complications; Z79.4 Long term (current) use of insulin; Z79.84 Long term (current) use of oral hypoglycemic drugs; I25.10 Atherosclerotic heart disease of native coronary artery without angina pectoris
CPT/HCPCS: A9270-GY; J2250; J3010; V2632

== ENCOUNTER 2018-10-29 10:42 | Day surgery (SDC) | payer OTHER ==
[2018-10-22 09:33] VITALS: BP 133/72
[2018-10-29] MEDS ORDERED: Tropicamide 1% OPTH.SOL* BTL ONE (11:28)
[2018-10-29] MEDS ORDERED: Phenylephrine OPHTH SOL 2.5%* 2 ML ONE (11:28)
[2018-10-29] MEDS ORDERED: Cyclopentolate 1% OPTH.SOL* 2 ML BTL ONE (11:28)
[2018-10-29] MEDS ORDERED: Lidocaine 1%* 5 ML VIAL ONE (11:28)
[2018-10-29] MEDS ORDERED: Neomycin/Polymy/Dex OPHTH.OIN* 3.5 GM ONE (11:28)
[2018-10-29] MEDS ORDERED: Tetracaine 0.5% OPTH.SOL 4 ML* 1 DROP BTL ONE (11:29)
[2018-10-29] MEDS ORDERED: Ketorolac 0.5% OPHTH (NF) 0.5 % 5 ML BTL ONE (11:29)
[2018-10-29] MEDS ORDERED: Midazolam* 1 MG/ML 5 ML VIAL (5 MG) ONE (12:31)
[2018-10-29] MEDS ORDERED: fentaNYL* 50 MCG/ML 2 ML VIAL (100 MCG VIAL) ONE (12:31)
--- NOTE | 2018-10-29 14:10 | OP ---
DATE OF OPERATION: 10/29/18 [facility] DATE OF : 64 SURGEON: Dr. Orlando Webster. BISQUE KILN PLACER: None. ANESTHESIA: Topical with intravenous sedation. PRE-OP DIAGNOSIS: Cataract, right eye. POST-OP DIAGNOSIS: Cataract, right eye. OPERATIVE PROCEDURE: Phacoemulsification and cataract extraction with posterior chamber intraocular lens implant, right eye. COMPLICATIONS: None. BLOOD LOSS: None. DESCRIPTION OF PROCEDURE: The patient was brought to the operating room and received a small amount of intravenous sedation. A drop of tetracaine was placed in her right eye. She was prepped and draped in the usual sterile fashion for ophthalmic surgery and attention was directed to the right eye where a speculum was placed. A paracentesis was created at the 11 o'clock position and 0.1 cc of 1 percent preservative-free lidocaine was injected into the anterior chamber followed by DisCoVisc. The eye was digitally stabilized while a 2.75 mm keratome was used to create a triplanar clear corneal incision at the 9 o'clock position. A continuous curvilinear capsulorrhexis was created with a cystotome and Utrata forceps. BSS on a cannula was used to hydrodissect the lens from the capsule. Phacoemulsification was performed in a divide-and- conquer technique to create four fragments which were removed. Residual cortical material was removed with irrigation and aspiration. DisCoVisc was used to inflate the capsular bag and an AU00T0 24.5 diopter lens was folded and inserted into the capsular bag. DisCoVisc was removed using irrigation and aspiration. BSS on a cannula was used to hydrate the corneal stroma and seal the wound. At the end of the case, the pupil was round and the lens was centered. The eye was of normal pressure and the wound was water tight. The speculum was removed and topical Maxitrol ointment was placed on the surface of the eye. The eye was closed, patched and shielded and the patient was sent to the recovery room in stable condition with post operative instructions and follow-up appointment given. [id number]/[facility] #: [id number] KAYLA
== END 2018-10-29 13:27 | disposition home or self-care (01) ==
LOC: OREAST 10:42
PROVIDERS: ATTEND Ophthalmology
DX: H25.11 Age-related nuclear cataract, right eye (principal); E11.36 Type 2 diabetes mellitus with diabetic cataract; I10 Essential (primary) hypertension; Z96.1 Presence of intraocular lens; Z79.4 Long term (current) use of insulin
CPT/HCPCS: A9270-GY; J2250; J3010; V2632